=== PATIENT | female | born 1985 | race Caucasian/White ===

== ENCOUNTER 2024-08-11 21:22 | Emergency (ER) | payer OTHER ==
[2024-08-12] MEDS ORDERED: HYDRALAZINE HCL 20 MG/ML VIAL ONE (00:53)
[2024-08-12] MEDS ORDERED: ACETAMINOPHEN 500 MG TAB ONE (00:53)
[2024-08-12] MEDS ORDERED: LORazepam 2 MG/ML VIAL ONE (00:53)
[2024-08-12] MEDS ORDERED: NA CHLORIDE 0.9% 1,000 ML ONE (00:54)
[2024-08-12 01:32] LABS: Absolute Basophils 0.1 K/uL (0-0.5); Absolute Eosinophils 0.1 K/uL (0-0.5); Absolute Lymphocytes (CBC) 1.8 K/uL (0.7-4.9); Absolute Monocytes 0.4 K/uL (0.1-1.3); Absolute Neutrophil 9.8 K/uL (1.8-8.0); Basophils % 0.6 % (0-1.3); Eosinophils % 0.8 % (0-4.4); Hematocrit 44.6 % (36.0-45.0); Hemoglobin 15.6 g/dL (12.0-15.0); MCH 31.6 pg (27.0-35.0); MCHC 34.9 g/dL (32.0-36.0); MCV 90.4 fL (80-100); MPV 10.2 fL (7.6-11.3); Monocytes % 3.6 % (3.3-12.3); Nucleated Red Blood Cells % 0.2 % (0-0); Platelets 256 thou/uL (152-406); RBC Red Blood Cell Count 4.93 M/uL (3.86-4.86); Red Cell Distribution Width 12.4 % (12.1-15.2)
[2024-08-12 01:33] LABS: Specific Gravity 1.024 (1.005-1.030)
[2024-08-12 01:34] LABS: Specific Gravity 1.024 (1.005-1.030); Urine Bacteria 20-50 /HPF (<20); Urine Bilirubin NEGATIVE (Negative); Urine Blood Negative (Negative); Urine Clarity Extremely Turbid (Clear); Urine Color Yellow (Yellow); Urine Glucose NEGATIVE (Negative); Urine Ketones NEGATIVE (Negative); Urine Micro Reflex YN NO BILL MICROSCOPIC; Urine Mucus 1+ /HPF (None Seen); Urine Nitrite NEGATIVE (Negative); Urine Protein 1+ (Negative); Urine RBC <5 /HPF (None Seen); Urine Urobilinogen Normal (Normal); Urine WBC <5 /HPF (<5)
[2024-08-12 01:36] LABS: D-Dimer 0.228 FEUug/mL (0-0.500); Protime INR 1.15
[2024-08-12 01:43] LABS: Barbiturates NEGATIVE (NEGATIVE); Benzodiazepines NEGATIVE (NEGATIVE); Cocaine NEGATIVE (NEGATIVE); METHAMPHETAM NEGATIVE (NEGATIVE); Methadone NEGATIVE (NEGATIVE); Opiates NEGATIVE (NEGATIVE); Phencyclidine NEGATIVE (NEGATIVE); THC Cannibis NEGATIVE (NEGATIVE)
[2024-08-12 01:46] LABS: ALT/SGPT 24 U/L (13-56); AST/SGOT 11 U/L (15-37); Albumin 4.2 g/dL (3.4-5.0); Albumin/Globulin Ratio 1.1 (1.1-1.8); Alkaline Phosphatase 77 U/L (45-117); Anion Gap 7.5 mEq/L (5.0-15.0); BUN Blood Urea Nitrogen 8 mg/dL (7-18); Bicarbonate 27 mEq/L (21-32); Bilirubin Total 0.4 mg/dL (0.2-1.0); Glomerular Filtration Rate 102 ml/min (=/>90); Glucose Level 124 mg/dL (74-106); Magnesium 2.1 mg/dL (1.6-2.4); NT PRO-BNP 41 pg/mL (<125); Potassium 3.5 mEq/L (3.5-5.1); Protein, Total 8.2 g/dL (6.4-8.2); Sodium Level 136 mEq/L (136-145)
[2024-08-12 02:20] LABS: Bilirubin Direct < 0.2 mg/dL (0-0.2); Bilirubin Indirect, Calculated 0.2 mg/dL (0.2-0.8); Troponin High Sensitivity < 3.0 pg/mL (<58.9)
[2024-08-12] MEDS ORDERED: AMLODIPINE 10 MG TAB ONE (03:17)
--- NOTE | 2024-08-12 05:02 | EDPHYS ---
Physician Documentation [facility] Name: Sandy Ricks Age: 39 yrs Sex: Female : 1985 Arrival Date: 08/11/2024 Time: 21:22 Bed 23 Private MD: ED Physician Lamberto Roldan HPI: 08/11 22:15 This 39 yrs old Female presents to ER via Ambulatory with complaints of High Blood cp Pressure, pt states she already took the max meds for today,says still high. 22:15 The patient has elevated blood pressure and discovered this at home, with a home device.cp 22:15 Onset: The symptoms/episode began/occurred today. cp 22:15 Associated signs and symptoms: Pertinent positives: chest pain, dizziness, headache, cp lightheadedness, nausea, Pertinent negatives: vomiting, weakness. Severity of symptoms: At its worst the blood pressure was 180 mm Hg, diastolic pressure of 120's. Patient reports pcp, DR Velazquez, recently increased [place] medication to 100 mg daily and prescribed Hydralazine 10 mg to take if systolic pressure elevated. Historical: - Allergies: 22:05 PENICILLINS; iw 22:05 Erythromycin; iw 22:05 Codeine; iw - PMHx: 22:05 Hypertensive disorder; iw - Infectious Disease History:: Denies. - Social history:: Smoking status: Patient reports the use of cigarette tobacco products, smokes one-half pack cigarettes per day. ROS: 22:20 Constitutional: Negative for body aches, chills, fever, poor PO intake, cp 22:20 Eyes: Negative for injury, pain, redness, and discharge, cp 22:20 ENT: Negative for drainage from ear(s), ear pain, sore throat, difficulty swallowing, difficulty handling secretions, 22:20 Neck: Negative for pain with movement, pain at rest, stiffness, 22:20 Cardiovascular: Positive for chest pain, Negative for edema, 22:20 Respiratory: Negative for cough, wheezing, 22:20 Abdomen/GI: Negative for abdominal pain, vomiting, diarrhea, constipation, 22:20 Neuro: Positive for dizziness, headache, Negative for altered mental status, weakness, 22:20 All other systems are negative, Exam: 22:17 ECG was reviewed by the Attending Physician. cp 22:25 Constitutional: The patient appears in no acute distress, alert, awake, cp non-diaphoretic, non-toxic, well developed, well nourished, anxious, uncomfortable, 22:25 Head/Face: Normocephalic, atraumatic. cp 22:25 Eyes: Periorbital structures: appear normal, Pupils: equal, round, and reactive to light and accomodation, Extraocular movements: intact throughout, Conjunctiva: Lids and lashes: appear normal, bilaterally, 22:25 ENT: External ear(s): are unremarkable, Nose: is normal, Mouth: Lips: moist, Oral cp mucosa: moist, Posterior pharynx: Airway: no evidence of obstruction, patent, 22:25 Neck: ROM/movement: is normal, is supple, without pain, no range of motions limitations, no meningismus, no nuchal rigidity, 22:25 Chest/axilla: Inspection: normal, 22:25 Cardiovascular: Rate: normal, Rhythm: regular, Edema: is not appreciated, JVD: is not appreciated, 22:25 Respiratory: the patient does not display signs of respiratory distress, Respirations: normal, no use of accessory muscles, no retractions, labored breathing, is not present, Breath sounds: are clear throughout, no decreased breath sounds, no stridor, no wheezing, 22:25 Abdomen/GI: Inspection: abdomen appears normal, Palpation: abdomen is soft and non-tender, in all quadrants, 22:25 Back: pain, is absent, ROM is normal, 22:25 Neuro: Orientation: to person, place \T\ time. Mentation: is normal, Cerebellar function: is grossly normal, Motor: moves all fours, strength is normal, Sensation: is normal, Vital Signs: 22:01 BP 169 / 121; Pulse 93; Resp 18; Pulse Ox 99% on R/A; iw 22:04 BP 180 / 117; Pulse 99; iw 04/18 03:20 BP 151 / 105; Pulse 78; Resp 25; Pulse Ox 97% on R/A; br2 05:30 BP 135 / 88; Pulse 78; Resp 18; Pulse Ox 100% on R/A; Pain 0/10; rg5 05:30 Pain Scale: Adult rg5 MDM: 08/11 21:59 Medical Screening Exam initiated cp 08/12 02:00 Differential diagnosis: hypertensive crisis, Malignant HTN, CVA, intracerebral cp hemorrhage. 05:00 Data reviewed: vital signs, nurses notes, lab test result(s), EKG, radiologic studies, cp CT scan, plain films, and as a result, I will discharge patient. 05:00 I considered the following discharge prescriptions or medication management in the emergency department Medications were administered in the Emergency Department. See MAR. 05:00 Consideration of Admission/Observation Escalation of care including admission/observation considered. Independent interpretation of the following test(s) in the Emergency Department EKG: See my EKG interpretation above. Care significantly affected by the following chronic conditions: Hypertension. Counseling: I had a detailed discussion with the patient and/or guardian regarding the historical points, exam findings, and any diagnostic results supporting the discharge/admit diagnosis, lab results, radiology results, the need for outpatient follow up, an certified nuclear medicine technologist, to return to the emergency department if symptoms worsen or persist or if there are any questions or concerns that arise at home. Response to treatment: the patient's symptoms have markedly improved after treatment, and as a result, I will discharge patient. 08/11 22:10 Order name: Basic Metabolic Panel; Complete Time: 03:15 08/12 03:16 Interpretation: Normal except: GLUC 124. 08/11 22:10 Order name: CBC with Diff; Complete Time: 02:15 08/12 02:15 Interpretation: Normal except: WBC 12.20; RBC 4.93; HGB 15.6; LANETTE% 80.0; LYM% 15.0; cp NEUT A 9.8. 08/11 22:10 Order name: LFT's; Complete Time: 03:15 08/12 03:16 Interpretation: Normal except: AST 11; GLOB 4.0. 08/11 22:10 Order name: Magnesium; Complete Time: 03:15 08/11 22:10 Order name: NT PRO-BNP; Complete Time: 03:15 08/11 22:10 Order name: PT-INR; Complete Time: 02:15 08/11 22:10 Order name: Troponin HS; Complete Time: 03:15 08/12 03:17 Interpretation: Troponin HS < 3.0; Reviewed. 08/11 22:10 Order name: D-Dimer; Complete Time: 02:15 08/12 00:44 Order name: UDS; Complete Time: 02:15 08/12 00:44 Order name: Urinalysis W/Microscopic; Complete Time: 03:15 cp 08/12 03:16 Interpretation: Normal except: [facility] Extremely Turbid; UPROT 1+; UBACT 20-50. 08/12 00:44 Order name: Test, Urine; Complete Time: 02:15 cp 08/11 22:10 Order name: XRAY Chest (1 view) cp 08/12 02:17 Order name: CT Head Brain wo Cont cp 08/11 22:10 Order name: Cardiac monitoring; Complete Time: 01:35 cp 08/11 22:10 Order name: EKG - Nurse/Tech; Complete Time: 22:13 cp 08/11 22:10 Order name: IV Saline Lock; Complete Time: 01:35 cp 08/11 22:10 Order name: Labs collected and sent; Complete Time: 01:35 cp 08/11 22:10 Order name: O2 Per Protocol; Complete Time: 01:35 cp 08/11 22:10 Order name: O2 Sat Monitoring; Complete Time: 01:35 cp EC/17 22:17 Rate is 86 beats/min. Rhythm is regular. ID interval is normal. QRS interval is normal. cp QT interval is normal. T waves are Inverted in lead aVR. Interpreted by me. Reviewed by me. Administered Medications: 08/12 01:34 Drug: hydrALAZINE IVP 10 mg IVP once Route: IVP; Site: right antecubital; br2 03:30 Follow up: Response: No adverse reaction; Blood pressure is lowered rg5 01:34 Drug: Acetaminophen PO 1000 mg PO once Route: PO; br2 03:30 Follow up: Response: No adverse reaction; Pain is decreased rg5 01:34 Drug: Ativan IVP 0.5 mg IVP once Route: IVP; Site: right antecubital; br2 03:30 Follow up: Response: No adverse reaction rg5 01:34 Drug: NS 0.9% IV 1000 ml IV at 1 bolus Per protocol; to be given as a bolus over 60 br2 minutes Route: IV; Rate: 1 bolus; Site: right antecubital; 03:20 Drug: amLODIPine PO 10 mg PO once Route: PO; br2 03:30 Follow up: Response: No adverse reaction; Blood pressure is lowered rg5 Disposition Summary: 08/12/24 05:01 Discharge Ordered Notes: Location: Home cp Problem: an acute exacerbation cp Symptoms: have improved cp Condition: Stable cp Diagnosis - Hypertensive heart disease without heart failure cp Followup: cp - With: Jeremy Velazquez MD - When: 2 - 3 days - Reason: Recheck today's complaints Discharge Instructions: - Discharge Summary Sheet cp - High-Fiber Eating Plan cp - Hypertension, Adult cp - How to Take Your Blood Pressure, [id number] cp - Aspirin and Your Heart cp - Form - Blood Pressure Record Sheet cp - How to Take Your Blood Pressure cp Forms: - Medication Reconciliation Form cp - Antibiotic Education cp - Prescription Opioid Use cp - Patient Portal Instructions cp - Leadership Thank You Letter cp - Work release form br2 Prescriptions: - amlodipine 5 mg Oral tablet - take 1 tablet ORAL route daily; 30 tablet; Refills: 0, Product Selection cp Permitted Addendum: 08/13/2024 08:59 Co-signature as Attending Physician, Lamberto Roldan MD I agree with the assessment and c batres plan of care. Signatures: Dispatcher [employer] EDDE Lamberto Roldan MD MD cha Williams, Irene, RN RN iw Lamberto Milan PA PA Courtney Rain RN RN br2 Mitch Figueroa RN rg5 Corrections: (The following items were deleted from the chart) 08/11 22:06 22:05 Allergies: Erythrocin; iw 22:10 22:10 BASIC METABOLIC PANEL+C.LAB.BRZ ordered. EDMS EDMS 22:10 22:10 CBC+H.LAB.BRZ ordered. EDMS EDMS 22:10 22:10 HEPATIC FUNCTION+C.LAB.BRZ ordered. EDMS EDMS 22:10 22:10 MAGNESIUM+C.LAB.BRZ ordered. EDMS EDMS 22:10 22:10 PROBNP+C.LAB.BRZ ordered. EDMS EDMS 22:10 22:10 PROTIME (+INR)+COAG.LAB.BRZ ordered. EDMS EDMS 22:10 22:10 Troponin High Sensitivity+C.LAB.BRZ ordered. EDMS EDMS 22:10 22:10 D-DIMER+COAG.LAB.BRZ ordered. EDMS EDMS 22:10 22:10 Chest Single View+RAD.RAD.BRZ ordered. EDMS EDMS 08/12 00:44 00:44 URINE DRUG SCREEN+UC.LAB.BRZ ordered. EDMS EDMS : 02:17 Head Brain Wo Cont+CT.RAD.BRZ ordered. EDMS EDMS
--- NOTE | 2024-08-12 05:02 | ER ---
Nurse's Notes [facility] Name: Sandy Ricks Age: 39 yrs Sex: Female : 1985 Arrival Date: 08/11/2024 Time: 21:22 Bed 23 Private MD: Diagnosis: Hypertensive heart disease without heart failure Presentation: 08/11 22:01 Chief complaint: Patient states: BP was 180's over 120's , has had increases in her BP iw meds and no change. Coronavirus screen: At this time, the client does not indicate any symptoms associated with coronavirus-19. Ebola Screen: No symptoms or risks identified at this time. Initial Sepsis Screen: Does the patient meet any 2 criteria? No. Patient's initial sepsis screen is negative. Does the patient have a suspected source of infection? No. Patient's initial sepsis screen is negative. Risk Assessment: Do you want to hurt yourself or someone else? Patient reports no desire to harm self or others. Onset of symptoms was August 11, 2024. 22:01 Method Of Arrival: Ambulatory iw 22:01 Acuity: ARAVIND 3 iw Historical: - Allergies: 22:05 PENICILLINS; iw 22:05 Erythromycin; iw 22:05 Codeine; iw - PMHx: 22:05 Hypertensive disorder; iw - Infectious Disease History:: Denies. - Social history:: Smoking status: Patient reports the use of cigarette tobacco products, smokes one-half pack cigarettes per day. Screenin/18 01:09 [facility] ED Fall Risk Assessment (Adult) History of falling in the last 3 months, br2 including since admission No falls in past 3 months (0 pts) Confusion or Disorientation No (0 pts) Intoxicated or Sedated No (0 pts) Impaired Gait No (0 pts) Mobility Assist Device Used No (0 pt) Altered Elimination No (0 pt) Score/Fall Risk Level 0 - 2 = Low Risk Oriented to surroundings. Abuse screen: Denies threats or abuse. Denies injuries from another. Nutritional screening: No deficits noted. Tuberculosis screening: No symptoms or risk factors identified. Assessment: 01:09 Reassessment: Patient and/or family updated on plan of care and expected duration. Pain br2 level reassessed. Patient is alert, oriented x 3, equal unlabored respirations, skin warm/dry/pink. General: Appears uncomfortable, Behavior is calm, cooperative. Pain: Complains of pain in forehead, right eye, right cheek, right ear and right hoahaoism Pain currently is 10 out of 10 on a pain scale. Neuro: Trejo Agitation-Sedation Scale (RASS): 0 - Alert and Calm Level of Consciousness is awake, alert, obeys commands, Oriented to person, place, time, situation. Neuro: Reports dizziness, headache in right parietal area. Cardiovascular: Reports shortness of breath. Cardiovascular: Reports lightheadedness. Respiratory: Reports shortness of breath at rest on exertion. GI: No signs and/or symptoms were reported involving the gastrointestinal system. : No signs and/or symptoms were reported regarding the genitourinary system. EENT: Reports pain in right eye. Derm: No signs and/or symptoms reported regarding the dermatologic system. Musculoskeletal: No signs and/or symptoms reported regarding the musculoskeletal system. 03:21 Reassessment: Patient and/or family updated on plan of care and expected duration. Pain br2 level reassessed. Patient states feeling better. Patient states symptoms have improved. Vital Signs: 08/11 22:01 BP 169 / 121; Pulse 93; Resp 18; Pulse Ox 99% on R/A; iw 22:04 BP 180 / 117; Pulse 99; iw 08/12 03:20 BP 151 / 105; Pulse 78; Resp 25; Pulse Ox 97% on R/A; br2 05:30 BP 135 / 88; Pulse 78; Resp 18; Pulse Ox 100% on R/A; Pain 0/10; rg5 05:30 Pain Scale: Adult rg5 ED Course: 08/11 21:25 Patient arrived in ED. gm2 21:37 Lamberto Milan PA is PHCP. cp 21:37 Lamberto Roldan MD is Attending Physician. cp 22:01 Triage completed. iw 22:50 XRAY Chest (1 view) In Process Unspecified. EDMS 08/12 01:09 Courtney Hope, DALE is Primary Nurse. br2 01:09 Patient has correct armband on for positive identification. Placed in gown. Bed in low br2 position. Call light in reach. Side rails up X 1. Provided Education on: plan of care. 01:11 Inserted saline lock: 20 gauge in right antecubital area, using aseptic technique. br2 Blood collected. Flushed with 10 mL NS. 01:35 D-Dimer Sent. br2 01:35 Basic Metabolic Panel Sent. br2 01:35 LFT's Sent. br2 01:35 Magnesium Sent. br2 01:35 NT PRO-BNP Sent. br2 01:35 PT-INR Sent. br2 01:35 Troponin HS Sent. br2 02:55 CT Head Brain wo Cont In Process Unspecified. EDMS 05:01 Jeremy Velazquez MD is Referral Physician. cp Administered Medications: 01:34 Drug: hydrALAZINE IVP 10 mg IVP once Route: IVP; Site: right antecubital; br2 03:30 Follow up: Response: No adverse reaction; Blood pressure is lowered rg5 01:34 Drug: Acetaminophen PO 1000 mg PO once Route: PO; br2 03:30 Follow up: Response: No adverse reaction; Pain is decreased rg5 01:34 Drug: Ativan IVP 0.5 mg IVP once Route: IVP; Site: right antecubital; br2 03:30 Follow up: Response: No adverse reaction rg5 01:34 Drug: NS 0.9% IV 1000 ml IV at 1 bolus Per protocol; to be given as a bolus over 60 br2 minutes Route: IV; Rate: 1 bolus; Site: right antecubital; 03:20 Drug: amLODIPine PO 10 mg PO once Route: PO; br2 03:30 Follow up: Response: No adverse reaction; Blood pressure is lowered rg5 Outcome: 05:01 Discharge ordered by . cp 06:14 Patient left the ED. rg5 Signatures: Dispatcher [employer] EDMT Divina Javier RN RN iw Lamberto Milan PA PA Leonor Newsome 2 Mitch Figueroa RN RN rg5 Courtney Hope RN RN br2 Corrections: (The following items were deleted from the chart) 08/11 22:03 22:01 Pulse 93bpm; Resp 18bpm; Pulse Ox 99% RA; iw iw 22:06 22:05 Allergies: Erythrocin; iw iw
--- NOTE | 2024-08-12 05:10 | RAD REPORT ---
EXAM: CT Head/Brain Without Contrast HISTORY: Hypertension, headache COMPARISON: None TECHNIQUE: Head/brain axial images acquired without contrast. Coronal and sagittal reformats created. Exam performed according to departmental dose-optimization program which includes automated exposure control, adjustment of mA and/or kV according to patient size, and/or use of iterative recon struction technique. FINDINGS: No midline shift, mass effect, intracranial hemorrhage, or hydrocephalus. Brain parenchyma unremarkable. Paranasal sinuses clear. Mastoid air cells clear. No skull fracture or significant skull lesion. IMPRESSION: Unremarkable CT head/brain without contrast. Electronically signed by: Connor Claros MD 08/12/2024 04:43 AM CDT RP Due to temporary technical issues with the PACS/[employer] reporting system, reports are being giovanny d by the in-house radiologist without review as a courtesy to ensure prompt reporting the interpreting radiologist is fully responsible for the content of the report. Transcribed Date/Time: 08/12/2024 5:10 AM
--- NOTE | 2024-08-12 05:39 | RAD REPORT ---
EXAM: XR Chest, 1 View CLINICAL HISTORY: The patient is 39 years old and is Female; CHEST PAIN TECHNIQUE: Frontal view of the chest. COMPARISON: No relevant prior studies available. FINDINGS: LUNGS: Linear opacity in the right lower lobe is noted. The lungs are otherwise well-inflated and clear. PLEURAL SPACE: Unremarkable. No pneumothorax. HEART: Unremarkable. No cardiomegaly. MEDIASTINUM: Unremarkable. Normal mediastinal contour. BONES/JOINTS: Unremarkable. No acute fracture. UPPER ABDOMEN: Gaseous distention of the bowel within left upper quadrant is present. IMPRESSION: Findings suggest right lower lobe atelectasis/scarring. Electronically signed by: Meredith Matias MD 08/11/2024 11:53 PM CDT RP Due to temporary technical issues with the [email or web address] reporting system, reports are being giovanny d by the in-house radiologist without review as a courtesy to ensure prompt reporting the interpreting radiologist is fully responsible for the content of the report. Transcribed Date/Time: 08/12/2024 5:39 AM
[2024-08-12 06:24] VITALS: BP 135/88; O2SAT 100
== END 2024-08-12 06:14 | disposition home or self-care (01) ==
LOC: ER 21:22
DX: I11.9 Hypertensive heart disease without heart failure (principal); I10 Essential (primary) hypertension; F17.210 Nicotine dependence, cigarettes, uncomplicated
CPT/HCPCS: 93005; 85025; 81001; 80048; 36415; 83735; 81025; 85610; 85379; 80076; 84484; 83880; 80307; 70450; 71045; J0360; J7030; 96374; 96375; 99284